=== PATIENT | female | born 2005 | race Two or more races ===

== ENCOUNTER 2023-08-05 13:11 | Emergency (ER) | payer MEDICAID, SELFPAY ==
--- NOTE | ~2023-08-05 | XR_ITS ---
EXAMINATION: XR CHEST CLINICAL INFORMATION: Cough, SOB COMPARISON: None available. TECHNIQUE: 2 views of the chest were obtained. FINDINGS: No significant abnormality is noted involving the heart, lungs, mediastinum, bony thorax or soft tissues. XR/XR chest 2V IMPRESSION: No acute cardiopulmonary disease.
[2023-08-05 13:39] VITALS: BP 100/79; PULSE 90; RESP 16; TEMP 36.3; O2SAT 94; BMI 42.7
--- NOTE | 2023-08-05 13:54 | ED_ITS ---
HPI - Asthma General Chief Complaint: Asthma Stated Complaint: Asthma Time Seen by Provider: 08/05/23 13:56 Source: patient, RN notes reviewed and old records reviewed Mode of arrival: ambulatory History of Present Illness HPI Narrative: 17-year-old female with a past medical history of asthma presenting to the ED complaining of asthma exacerbation with productive cough, SOB, and chest discomfort x1 month. Has been using rescue inhaler without relief. Denies having nebulizer at home. Denies fever/chills, recent travel, sick contacts MD complaint: asthma attack and shortness of breath Related Data Previous Rx's Medication Instructions Recorded albuterol sulfate 90 mcg/actuation 2 puff inhalation Q4-6H PRN 08/05/23 aerosol inhaler shortness of breath or wheezing #6.7 grams prednisone 20 mg tablet 40 mg (2 x 20 mg) PO DAILY 5 days 08/05/23 #10 tabs Allergies Allergy/AdvReac Type Severity Reaction Status Date / Time No Known Allergies Allergy Verified 08/05/23 13:46 Review of Systems 2 Review of Systems: Constitutional:No Fever, No Chills ENT/Mouth: No Ear Pain, No Nasal Congestion, No sore throat, No Rhinorrhea, No Swallowing Difficulty Cardiovascular: + Chest Pain, + SOB Respiratory: + Cough, +Sputum, + Wheezing Gastrointestinal: No Nausea, No Vomiting, No Abdominal pain Musculoskeletal: No joint pain, No Myalgias, No Joint Swelling Skin: No Skin Lesions, No rash Neuro: No Weakness Yes all other systems are reviewed and are negative Constitutional: Constitutional: Reports as per [facility] Past Medical History Attestation statement: The following information was validated with the patient. Source: old records reviewed Onset Date is defined in the Problem List Problems that require an onset date and time if occurred within 24 hrs of arrival to the ED Aortic Dissection and Rupture; Neurologic impairment; Cardiopulmonary Arrest; Endotracheal Intubation; Insertion or Replacement of Mechanical Circulatory Assist Device Social History Social History Advance Directives: No Physical Exam 2 Vital Signs: Vital Signs: Last Vital Signs Temp 97.4 F 08/05/23 13:39 Pulse 86 08/05/23 16:30 Resp 18 08/05/23 16:30 BP 100/79 08/05/23 13:39 Pulse Ox 94 08/05/23 13:39 O2 Del Method Room Air 08/05/23 13:39 BMI result Body Mass Index 42.7 Const: General: cooperative, healthy appearing and no acute distress O rientation/consciousness: patient oriented x3 Limitations: no limitations HEENT: Head: Yes normal to inspection and Yes atraumatic Ears: hearing grossly normal bilaterally General nose exam: Normal external nose present Face and sinus: Yes normal facial exam Eyes: General: appearance normal, both eyes and all related structures EOM: EOMs intact bilaterally Neck: Neck: Yes normal visual inspection and Yes no meningeal signs Resp: Effort & Inspection: normal respiratory effort and no respiratory distress Auscultation: wheezes expiratory wheezes, inspiratory wheezes and throughout Cardio: Rate: regular rate Heart sounds: S1 normal heart sound present and S2 normal heart sound present Skin: Rashes: no rashes Wounds: no wounds Neuro: General: patient oriented x3, tone normal and no meningeal signs C ranial nerves: Yes CN's II-XII intact bilaterally Gait exam (Neuro): Normal gait present Extrem: General: Yes normal to inspection and Yes no pedal edema Course Course Course Narrative: RME performed by Rosi Miller PA-C. Patient is a 17 year old assigned female at presenting to the emergency department with a cough and worsening asthma symptoms. Detailed physical exam and review of systems are deferred to the shoe reconditioner. Labs, imaging, and swabs ordered. Patient placed back in the waiting room pending room availability and results. -1555--mild leukocytosis 12.5. Labs otherwise reassuring. COVID/flu/RSV negative XR chest 2V IMPRESSION: No acute cardiopulmonary disease. > on re-evaluation after 1st DuoNeb minimal residual expiratory wheeze appreciated. Good air movement. Will give additional DuoNeb and reassess. Anticipate discharge -1645--on re-evaluation reports symptomatic improvement. Lungs CTA. Plan for discharge home Results discussed with patient including worrisome signs and symptoms and strict return precautions, and when to return to the emergency department. They verbalized understanding and feel safe for discharge at this time. Medications Administered Discontinued Medications Generic Name Dose Route Start Last Admin Trade Name Freq PRN Reason Stop Dose Admin Albuterol/Ipratropium 3 ml 08/05/23 15:52 08/05/23 16:28 Albuterol/Iprat 2.5/0.5mg 3 Ml Ampul.Neb INHALE 08/05/23 15:53 3 ml ONCE ONE Administration Albuterol Sulfate 2.5 mg/ 0 mg 08/05/23 15:02 08/05/23 15:05 Albuterol/Ipratropium 3 ml INHALE 08/05/23 15:03 5 dose ONCE ONE Administration Methylprednisolone Sodium Succinate 125 mg 08/05/23 15:02 08/05/23 15:14 Methylprednisolone Sod Succ 125 Mg/2 Ml Vial IVPUSH 08/05/23 15:03 125 mg ONCE ONE Administration Medical Decision Making Medical Decision Making [facility] Narrative: 17-year-old female with a past medical history of asthma presenting to the ED complaining of asthma exacerbation with productive cough, SOB, and chest discomfort x1 month. On exam vital signs stable, NAD, nontoxic appearing, inspiratory and expiratory wheeze appreciated on exam throughout. Concern for viral syndrome vs asthma exacerbation vs pneumonia/bronchitis. Lower suspicion for ACS/PE Plan: Labs, CXR, viral testing ordered in triage, DuoNeb, IV Solu-Medrol, re- evaluate Please refer to course for remaining clinical decision making, interpretation of labs/imaging results, and discussions with consultants and/or family members. Differential Diagnosis Differential Diagnoses: The differential diagnosis associated with the presentation includes As above Admission/Observation Consideration of admission/observation: Escalation of care including admission/observation considered Lab Data [facility] Lab Attestation statement: I reviewed the patient's lab results. 08/05/23 14:06 08/05/23 14:06 Labs: Lab Results 08/05/23 Range/Units 14:06 WBC 12.5 H (4.8-10.8) X10*3/uL RBC 4.49 (4.20-5.50) X10*6/uL Hgb 11.9 L (12.0-16.0) g/dl Hct 37.3 (37.0-47.0) % MCV 83.1 (80.0-98.0) fL MCH 26.5 L (27.0-33.0) pg MCHC 31.9 (31.0-35.0) g/dl RDW 15.3 (11.0-16.0) % Plt Count 448 H (160-400) X10*3/uL MPV 9.7 (9.4-12.3) fL Immature Gran % (Auto) 0.4 (0.0-0.4) % Neut % (Auto) 63.2 (45-73) % Lymph % (Auto) 21.1 (20-40) % Wilson % (Auto) 5.9 (2-11) % Eos % (Auto) 9.2 H (0-4) % Baso % (Auto) 0.2 (0-2) % Lymph # (Auto) 2.6 (1.2-4.9) X10*3/uL Wilson # (Auto) 0.7 (0.1-1.2) X10*3/uL Eos # (Auto) 1.2 H (0.0-0.4) X10*3/uL Baso # (Auto) 0.0 (0.0-0.2) X10*3/uL Abs Immat Gran (auto) 0.05 H (0.00-0.03) X10*3/uL Absolute Neuts (auto) 7.9 (2.0-8.3) x10*3/uL Absolute Nucleated RBC 0.000 (0.0-0.012) X10*3/uL Nucleated RBC % (auto) 0.0 (0.0-0.2) /100WBC Sodium 139 (135-145) mmol/L Potassium 3.8 (3.3-5.1) mmol/L Chloride 108 (96-108) mmol/L Carbon Dioxide 22 (22-29) mmol/L Anion Gap 13 (12-20) BUN 8 L (9-16) mg/dL Creatinine 0.84 (0.5-1.4) mg/dL Estim Creat Clear Calc 137.2 Estimated GFR > 60 Random Glucose 114 (60-115) mg/dL Calcium 9.3 (8.4-10.2) mg/dL Magnesium 2.0 (1.6-2.6) mg/dL Total Bilirubin 0.2 (0.0-1.0) mg/dL AST 19 (5-31) U/L ALT 25 (0-31) U/L Alkaline Phosphatase 113 (39-117) U/L Total Protein 7.7 (6.5-8.0) g/dL Albumin 4.0 (3.5-5.0) g/dL Influenza Type A (PCR) NEGATIVE (Negative) Influenza Type B (PCR) NEGATIVE (Negative) RSV RNA Qual (PCR) NEGATIVE (Negative) SARS-CoV-2 RNA (RT-PCR) NEGATIVE (Negative) Independent Interpretation I performed an independent interpretation of an: Plain X-Ray Radiology Impression Discussion of test interpretation with radiology: I have reviewed the radiologist's reading. External Record Review External record reviewed: Inpatient record, Office record, Outpatient record, Prior outpatient labs, Prior outpatient radiology, Primary care record and Outside ED record Tests considered The following testing was considered but not selected: As above Chronic Conditions Patient?s care impacted by: Other (asthma) Discharge Plan Discharge Clinical Impression: Asthma with acute exacerbation Patient Disposition: Home, Self-Care Instructions: Asthma (DC) Prescriptions: New prednisone 20 mg tablet 40 mg PO DAILY 5 Days Qty: 10 0RF albuterol sulfate 90 mcg/actuation HFA aerosol inhaler 2 puff inhalation Q4-6H PRN (Reason: shortness of breath or wheezing) Qty: 6.7 0RF Referrals: Physician,None [Primary Care Provider] - 3 days
[2023-08-05 14:27] LABS: Alanine Aminotransferase 25 U/L (0-31); Alkaline Phosphatase 113 U/L (39-117); Anion Gap 13 (12-20); Aspartate Amino Transferase 19 U/L (5-31); Bilirubin Total 0.2 mg/dL (0.0-1.0); Blood Urea Nitrogen 8 mg/dL (9-16); Calcium 9.3 mg/dL (8.4-10.2); Carbon Dioxide 22 mmol/L (22-29); Chloride 108 mmol/L (96-108); Creatinine Clr Calc Pharmacy 137.2; Estimated Glomerular Filt Rate > 60; Glucose Random 114 mg/dL (60-115); Potassium 3.8 mmol/L (3.3-5.1); Sodium 139 mmol/L (135-145); Total Protein 7.7 g/dL (6.5-8.0)
[2023-08-05 15:08] VITALS: PULSE 88; RESP 20; O2SAT 95
--- NOTE | 2023-08-05 15:24 | PC.NURSE ---
Pt alert and oriented. IV line placed in right AC. Medication administered as per SEP. Plan of care ongoing
[2023-08-05] MEDS: Albuterol/Iprat 2.5/0.5MG 3 ML AMPUL.NEB INHALE (16:28)
[2023-08-05 16:30] VITALS: PULSE 86; RESP 18; O2SAT 95
== END 2023-08-05 17:13 | disposition home or self-care (01) ==
PROVIDERS: Physician Assistant Medical; Emergency Provider Emergency Medicine
DX: J45.901 Unspecified asthma with (acute) exacerbation (principal); R05.9 Cough, unspecified; R06.02 Shortness of breath; R07.89 Other chest pain; Z20.822 Contact with and (suspected) exposure to COVID-19; Z20.828 Contact with and (suspected) exposure to other viral communicable diseases; Z79.899 Other long term (current) drug therapy
CPT/HCPCS: 0241U; 36415; 71046; 80053; 83735; 85025; 94640; 96374; 99284; J2930

== ENCOUNTER 2023-09-26 09:49 | Outpatient (REF) | payer MEDICAID, SELFPAY ==
[2023-09-27 04:38] LABS: HBS Num1 24.35 mIU/mL (0-7.99); ~Hepatitis B Surface Antibody REACTIVE (Nonreactive)
[2023-10-01 02:43] LABS: Mumps Virus IgG Antibody <9.00 AU/mL; Rubella IgG Antibody 4.07 Index
[2023-10-02 16:53] LABS: Polio 1 Titer >1:128; Polio 3 Titer >1:128
== END 2023-09-26 09:50 | disposition home or self-care (01) ==
LOC: HO.LAB 09:49
PROVIDERS: Visit Provider Family Medicine Adult Medicine
DX: Z01.84 Encounter for antibody response examination (principal)
CPT/HCPCS: 36415; 86382; 86706; 86735; 86762; 86765; 86787